=== PATIENT | male | born 1965 | race Caucasian/White ===

== ENCOUNTER 2024-09-20 13:08 | Observation (INO) | payer OTHER ==
[~2024-09-20] VITALS: Ht 180.3 cm; Wt 102.2 kg
[2024-09-20] VITALS (21 sets, daily range): BP systolic 119–151; BP diastolic 67–96
[2024-09-20] MEDS ORDERED: KETOROLAC TROMETHAMINE 30 MG/ML SDV IV ONE (14:10)
[2024-09-20 14:39] LABS: BASO% 0.2 % (0-3); EOS% 1.1 % (0-8); HEMATOCRIT 45.8 % (39.0-50.0); HEMOGLOBIN 15.4 g/dl (14.0-18.0); IMMATURE GRANULOCYTES 0.2 % (0.0-5.0); MEAN CELL VOLUME 94.8 fL CALC (80.0-100.0); MEAN CORPUSCULAR HGB 31.9 pG CALC (26.0-32.0); MEAN CORPUSCULAR HGB CONC 33.6 g/dL CAL (32.0-36.0); MONO% 3.1 % (2-13); NEUT# 4.65 thou/uL (1.82-7.42); NEUT% 18.4 % (42-76); RED BLOOD COUNT 4.83 mill/uL (4.70-6.10); RED CELL DISTRI WIDTH 12.4 % (11.5-15.5)
[2024-09-20 14:42] LABS: URINE BILIRUBIN - DIPSTICK Negative (NEGATIVE); URINE BLOOD DIPSTICK Negative (NEGATIVE); URINE GLUCOSE - DIPSTICK Negative (NEGATIVE); URINE KETONE Negative (NEGATIVE); URINE LEUK ESTERASE Negative (NEGATIVE); URINE NITRITE - DIPSTICK Negative (Negative); URINE PROTEIN - DIPSTICK Negative (NEG-TRACE); URINE UROBILINOGEN - DIPSTICK 0.2 E.U./dL (0.2)
[2024-09-20 14:48] LABS: URINE COLOR Yellow
[2024-09-20 15:01] LABS: ALBUMIN 4.6 g/dL (3.2-5.0); BILIRUBIN, TOTAL 0.6 mg/dL (0.2-1.3); POTASSIUM 4.8 mmol/l (3.5-5.1); TOTAL PROTEIN 7.1 g/dL (6.3-8.2)
[2024-09-20] MEDS ORDERED: SODIUM CHLORIDE 0.9% 1,000 ML IV ONE (15:30)
[2024-09-20] MEDS ORDERED: PIPERACILLIN Sodium-Tazobactam 3.375 GM in SODIUM CHLORIDE 0.9% 100 ML IV SCH (16:00)
[2024-09-20] MEDS ORDERED: ACETAMINOPHEN 325 MG/TAB PO PRN (17:45)
[2024-09-20] MEDS ORDERED: SODIUM CHLORIDE 0.9% 1,000 ML IV PRN (17:45)
[2024-09-20] MEDS ORDERED: MAGNESIUM HYDROXIDE 30 ML UDC PO PRN (17:45)
[2024-09-20] MEDS ORDERED: CRESTOR40 MG PO (17:57)
[2024-09-20] MEDS ORDERED: ZETIA10 MG PO (19:04)
[2024-09-20] MEDS ORDERED: ENOXAPARIN SODIUM 40 MG/0.4 ML SYR SC SCH (21:00)
[2024-09-21 03:25] VITALS: BP 103/49
[2024-09-21 05:22] LABS: BILIRUBIN, TOTAL 0.7 mg/dL (0.2-1.3); MAGNESIUM 2.1 mg/dL (1.6-2.3); POTASSIUM 4.1 mmol/l (3.5-5.1); TOTAL PROTEIN 5.7 g/dL (6.3-8.2)
[2024-09-21 05:23] LABS: ALBUMIN 3.4 g/dL (3.2-5.0)
[2024-09-21 05:51] LABS: HEMATOCRIT 41.3 % (39.0-50.0); HEMOGLOBIN 13.3 g/dl (14.0-18.0); MEAN CELL VOLUME 97.4 fL CALC (80.0-100.0); MEAN CORPUSCULAR HGB 31.4 pG CALC (26.0-32.0); MEAN CORPUSCULAR HGB CONC 32.2 g/dL CAL (32.0-36.0); RED BLOOD COUNT 4.24 mill/uL (4.70-6.10); RED CELL DISTRI WIDTH 12.4 % (11.5-15.5)
[2024-09-21 06:50] VITALS: BP 112/67
[2024-09-21 14:43] VITALS: BP 133/84
[2024-09-21 18:10] VITALS: BP 146/84
[2024-09-21 18:30] VITALS: BP 146/84
[2024-09-22 04:00] VITALS: BP 117/70
[2024-09-22 04:20] VITALS: BP 117/70
[2024-09-22 05:46] LABS: BASO% 0.3 % (0-3); EOS% 0.9 % (0-8); HEMOGLOBIN 13.3 g/dl (14.0-18.0); IMMATURE GRANULOCYTES 0.1 % (0.0-5.0); LYMPH% 74.4 % (15-41); MEAN CELL VOLUME 98.3 fL CALC (80.0-100.0); MEAN CORPUSCULAR HGB 31.9 pG CALC (26.0-32.0); MEAN CORPUSCULAR HGB CONC 32.4 g/dL CAL (32.0-36.0); MONO% 3.7 % (2-13); NEUT# 4.52 thou/uL (1.82-7.42); NEUT% 20.6 % (42-76); RED BLOOD COUNT 4.17 mill/uL (4.70-6.10); RED CELL DISTRI WIDTH 12.6 % (11.5-15.5)
[2024-09-22 05:56] LABS: ALBUMIN 3.5 g/dL (3.2-5.0); BILIRUBIN, TOTAL 0.6 mg/dL (0.2-1.3); MAGNESIUM 2.2 mg/dL (1.6-2.3); POTASSIUM 4.1 mmol/l (3.5-5.1); TOTAL PROTEIN 5.7 g/dL (6.3-8.2)
[2024-09-22 06:29] VITALS: BP 129/71
[2024-09-22 08:00] VITALS: BP 129/71
[2024-09-22 09:19] LABS: CHOLESTEROL HDL RATIO 2.3 (<4.4 (CALC))
[2024-09-22 12:33] VITALS: BP 128/74
== END 2024-09-22 12:27 | disposition home or self-care (01) | DRG 816 ==
LOC: ED 13:08 → ED-I 17:45 → ED 17:49 → MS2 17:50
PROVIDERS: Family Medicine; Nurse Practitioner Family; ADMIT Internal Medicine; ATTEND Internal Medicine
DX: D72.829 Elevated white blood cell count, unspecified (principal); R10.11 Right upper quadrant pain; M54.6 Pain in thoracic spine; I10 Essential (primary) hypertension; E78.5 Hyperlipidemia, unspecified; Z87.442 Personal history of urinary calculi
CPT/HCPCS: G0378; J1650; J2543; Q9967